=== PATIENT | male | born 1970 | race Caucasian/White ===

== ENCOUNTER → 2022-02-27 | Outpatient (CLI) | payer BC ==
[~2022-02-27] MED LIST: DUO-KAPS1 CAP PO; NASONEX SPRAY17 GM NS; PRILOTC; [UNRECOGNIZED DRUG - OTHER] PO
== END ==
LOC: DIA.ED
DX: E11.9 Type 2 diabetes mellitus without complications (principal); E11.40 Type 2 diabetes mellitus with diabetic neuropathy, unspecified; Z79.4 Long term (current) use of insulin
CPT/HCPCS: G0108